=== PATIENT | male | born 1985 | race Caucasian/White ===

== ENCOUNTER 2016-07-07 02:47 | Emergency (ER) | payer MEDICAID, OTHER ==
[2016-07-07 02:49] VITALS: BP 140/87; PULSE 89; RESP 16; TEMP 98.6; O2SAT 98
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
== END 2016-07-07 04:23 | disposition home or self-care (01) ==
LOC: NEPD 02:47
DX: J02.8 Acute pharyngitis due to other specified organisms (principal); B97.89 Other viral agents as the cause of diseases classified elsewhere; H92.02 Otalgia, left ear; R11.0 Nausea; R68.83 Chills (without fever); I10 Essential (primary) hypertension; Z72.0 Tobacco use; Z86.69 Personal history of other diseases of the nervous system and sense organs
CPT/HCPCS: 87081; 87880; 99283

== ENCOUNTER 2017-07-08 05:54 | Emergency (ER) | payer SELFPAY ==
[~2017-07-08] VITALS: Ht 172.7 cm; Wt 77.0 kg
[2017-07-08 06:14] VITALS: BP 142/76; PULSE 102; RESP 20; TEMP 98; O2SAT 98
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
== END 2017-07-08 09:11 | disposition left against medical advice (07) ==
LOC: NEPD 05:54
DX: T59.3X3A Toxic effect of lacrimogenic gas, assault, initial encounter (principal); L98.9 Disorder of the skin and subcutaneous tissue, unspecified; Y35.893A Legal intervention involving other specified means, suspect injured, initial encounter; F31.9 Bipolar disorder, unspecified; I10 Essential (primary) hypertension; F12.90 Cannabis use, unspecified, uncomplicated; Z72.0 Tobacco use
CPT/HCPCS: 99281